=== PATIENT | male | born 1990 | race Caucasian/White ===

== ENCOUNTER 2020-03-09 05:43 | Emergency (ER) | payer MEDICAID ==
[~2020-03-09] VITALS: Ht 170.2 cm; Wt 84.1 kg
[~2020-03-09 05:43] MED LIST: CLIN-5 PO; NO HOME MEDS
[2020-03-09 06:00] VITALS: BP 165/84
[2020-03-09] MEDS ORDERED: ketorolac trometh inj. 60 MG/2 ML VIAL IM ONE (06:35)
== END 2020-03-09 07:58 | disposition home or self-care (01) ==
LOC: ER 05:44
DX: M54.5 Low back pain (principal); F12.90 Cannabis use, unspecified, uncomplicated; Z72.89 Other problems related to lifestyle; W18.39XA Other fall on same level, initial encounter; Y93.89 Activity, other specified; Y92.89 Other specified places as the place of occurrence of the external cause; Y99.8 Other external cause status
CPT/HCPCS: 72170; 96372; 99284; J1885

== ENCOUNTER 2020-04-11 00:27 | Emergency (ER) | payer MEDICAID ==
[~2020-04-11] VITALS: Ht 167.6 cm; Wt 88.6 kg
[~2020-04-11 00:27] MED LIST changes: -CLIN-5 PO
[2020-04-11] MEDS ORDERED: LIDOcaine 1% W/epiNEPHrine 1:100,000 20ml vial SQ ONE (00:40)
[2020-04-11] MEDS ORDERED: TETanus/Pertussis (Acell)/Diphther VAC/PF (Tdap-Adult) 0.5ml syringe IMVAC ONE (00:40)
[2020-04-11] MEDS ORDERED: diphenhydrAMINE 50 mg/ml inj IM ONE (00:50)
[2020-04-11] MEDS: haloperidol lactate 5mg/ml inj IM ONE ×2 (00:55→00:58)
[2020-04-11] MEDS ORDERED: diphenhydrAMINE 50 mg/ml inj ONE (01:02)
--- NOTE | 2020-04-11 01:04 | NUR ---
Pt. given benadryl IM per order for restlessness/anxiety.
--- NOTE | 2020-04-11 01:37 | NUR ---
MD at bedside performing lac repair to affected sites. Pt. tolerating procedure well.
[2020-04-11 01:59] VITALS: BP 143/91
== END 2020-04-11 02:01 ==
LOC: ER 00:27
DX: S01.112A Laceration without foreign body of left eyelid and periocular area, initial encounter (principal); S01.511A Laceration without foreign body of lip, initial encounter; S80.212A Abrasion, left knee, initial encounter; S80.211A Abrasion, right knee, initial encounter; F12.90 Cannabis use, unspecified, uncomplicated; X58.XXXA Exposure to other specified factors, initial encounter; Y93.89 Activity, other specified; Y92.89 Other specified places as the place of occurrence of the external cause; Y99.8 Other external cause status
CPT/HCPCS: 12011; 90471; 90715; 96372; 99284; J1200; J1630

== ENCOUNTER 2020-09-28 14:54 | Emergency (ER) | payer MEDICAID ==
[~2020-09-28] VITALS: Ht 175.3 cm; Wt 95.0 kg
[2020-09-28 15:11] VITALS: BP 117/59
--- NOTE | 2020-09-28 15:23 | NUR ---
Pt. seen, evaluated, and discharged by provider prior to RN intervention.
== END 2020-09-28 15:25 | disposition home or self-care (01) ==
LOC: ER 14:54
DX: R56.9 Unspecified convulsions (principal); F12.10 Cannabis abuse, uncomplicated; R25.1 Tremor, unspecified; R51.9 Headache, unspecified; R42 Dizziness and giddiness; Z00.01 Encounter for general adult medical examination with abnormal findings
CPT/HCPCS: 99281

== ENCOUNTER 2022-04-26 09:13 | Emergency (ER) | payer MEDICAID ==
[2022-04-26 09:16] VITALS: BP 157/96
== END 2022-04-26 09:46 | disposition home or self-care (01) ==
LOC: ER 09:13
DX: Z02.89 Encounter for other administrative examinations (principal); F12.90 Cannabis use, unspecified, uncomplicated; F41.9 Anxiety disorder, unspecified; Z72.89 Other problems related to lifestyle
CPT/HCPCS: 99281

== ENCOUNTER 2022-04-28 09:59 | Emergency (ER) | payer MEDICAID ==
[~2022-04-28] VITALS: Ht 167.6 cm; Wt 101.2 kg
[2022-04-28 10:13] VITALS: BP 135/85
[2022-04-28] MEDS ORDERED: NALT50TA PO (11:25)
== END 2022-04-28 11:33 | disposition home or self-care (01) ==
LOC: ER 09:59
DX: F10.20 Alcohol dependence, uncomplicated (principal); F12.90 Cannabis use, unspecified, uncomplicated; Z79.899 Other long term (current) drug therapy; Y90.9 Presence of alcohol in blood, level not specified
CPT/HCPCS: 99283

== ENCOUNTER 2022-07-30 16:21 | Emergency (ER) | payer MEDICAID ==
[~2022-07-30] VITALS: Ht 172.7 cm; Wt 100.0 kg
[~2022-07-30 16:21] MED LIST changes: +NALT50TA PO
[2022-07-30 16:25] VITALS: BP 174/92
== END 2022-07-30 17:20 | disposition home or self-care (01) ==
LOC: ER 16:22
DX: F10.129 Alcohol abuse with intoxication, unspecified (principal); R11.2 Nausea with vomiting, unspecified; F17.200 Nicotine dependence, unspecified, uncomplicated; F12.10 Cannabis abuse, uncomplicated; Z79.899 Other long term (current) drug therapy; Y90.9 Presence of alcohol in blood, level not specified
CPT/HCPCS: 99281

== ENCOUNTER 2022-11-14 22:39 | Emergency (ER) | payer MEDICAID ==
[~2022-11-14] VITALS: Ht 167.6 cm; Wt 100.0 kg
[2022-11-14 22:46] VITALS: BP 152/107
[2022-11-14] MEDS ORDERED: AMOX-115 PO (23:57)
== END 2022-11-15 00:07 | disposition home or self-care (01) ==
LOC: ER 22:41
DX: S00.511A Abrasion of lip, initial encounter (principal); F12.10 Cannabis abuse, uncomplicated; F10.129 Alcohol abuse with intoxication, unspecified; Y90.9 Presence of alcohol in blood, level not specified; Y04.0XXA Assault by unarmed brawl or fight, initial encounter; Y93.89 Activity, other specified; Y92.89 Other specified places as the place of occurrence of the external cause; Y99.8 Other external cause status
CPT/HCPCS: 70450; 70486; 72125; 99284

== ENCOUNTER 2023-09-25 19:58 | Emergency (ER) | payer MEDICAID | END 2023-09-25 23:20 | disposition left against medical advice (07) | LOC: ER 19:58 | DX: S61.219A Laceration without foreign body of unspecified finger without damage to nail, initial encounter (principal); Z53.21 Procedure and treatment not carried out due to patient leaving prior to being seen by health care provider; X58.XXXA Exposure to other specified factors, initial encounter; Y93.89 Activity, other specified; Y92.89 Other specified places as the place of occurrence of the external cause; Y99.8 Other external cause status ==

== ENCOUNTER 2023-09-25 23:17 | Emergency (ER) | payer MEDICAID ==
[~2023-09-25] VITALS: Ht 165.1 cm; Wt 97.7 kg
[2023-09-26] MEDS ORDERED: ondansetron 4mg rapidly disintigrating tab PO ONE (00:35)
[2023-09-26 01:20] LABS: BASOPHILS # (AUTO) 0.1 X10'3 (0-0.2); BASOPHILS % (AUTO) 1.5 % (0-1); EOSINOPHILS % (AUTO) 0.3 % (0-6); HEMATOCRIT 41.4 % (42.0-52.0); HEMOGLOBIN 14.4 g/dl (14.0-17.9); LYMPHOCYTES # (AUTO) 2.5 X10'3 (1.1-4.8); LYMPHOCYTES % (AUTO) 35.4 % (21-51); MEAN CORPUSCULAR HEMOGLOBIN 32.3 PG (27.0-31.0); MEAN CORPUSCULAR HGB CONC 34.8 g/dL (33.0-36.5); MEAN PLATELET VOLUME 7.8 FL (7.4-10.4); MONOCYTES # (AUTO) 0.8 X10'3 (0-0.9); MONOCYTES % (AUTO) 10.8 % (2-12); NEUTROPHILS # (AUTO) 3.7 X10'3 (1.8-7.7); PLATELET COUNT 286 X10'3 (140-440); RED BLOOD COUNT 4.46 X10'6 (4.70-6.10); RED CELL DISTRIBUTION WIDTH 14.6 % (11.5-14.5); WHITE BLOOD COUNT 7.1 X10'3 (4.5-11.0)
[2023-09-26 01:35] LABS: ALANINE AMINOTRANSFERASE 24 U/L (12-78); ALBUMIN 3.8 G/DL (3.4-5.0); ALBUMIN/GLOBULIN RATIO 0.9 (1.1-1.5); ALKALINE PHOSPHATASE 87 IU/L (46-116); ANION GAP 10 (8-16); ASPARTATE AMINO TRANSFERASE 24 U/L (10-37); BILIRUBIN,TOTAL 0.5 MG/DL (0.1-1.0); BLOOD UREA NITROGEN 10 MG/DL (7-18); BUN/CREATININE RATIO 11.9 (10.0-20.0); CALCIUM 8.5 MG/DL (8.5-10.1); CHLORIDE 105 MMOL/L (99-107); CREATININE 0.84 MG/DL (0.60-1.10); GLUCOSE 105 MG/DL (70-104); POTASSIUM 3.6 MMOL/L (3.5-5.1); SODIUM 142 MMOL/L (135-145); TOTAL CARBON DIOXIDE 27.3 MMOL/L (24-32); eCRCL 108 ML/MIN; eGFR > 90 ML/MIN
[2023-09-26 01:39] LABS: ETHANOL 315 MG/DL (<10)
[2023-09-26 01:56] LABS: BILIRUBIN,URINE NEGATIVE (Neg); CLARITY,URINE CLEAR (Clear); COLOR,URINE YELLOW (Yellow); GLUCOSE, URINE NEGATIVE (Neg); KETONES,URINE NEGATIVE (Neg); LEUKOCYTE ESTERASE ,URINE NEGATIVE (Neg); NITRITES, URINE NEGATIVE (Neg); OCCULT BLOOD,URINE TRACE-INTACT (Neg); PH,URINE 7.5 (4.8-8.0); PROTEIN,URINE NEGATIVE (Neg)
[2023-09-26 02:14] LABS: UA COLLECTION TYPE VOIDED
[2023-09-26 02:15] LABS: BACTERIA,URINE FEW /HPF (Neg); RBC,URINE 0-2 /HPF (0-2); SQUAMOUS EPITHELIAL CELL,UR FEW /LPF (FEW); WBC,URINE 0-4 /HPF (0-4)
[2023-09-26] MEDS ORDERED: bacitracin 15gm ointment TP ONE (02:25)
[2023-09-26 03:02] VITALS: BP 113/81; PULSE 82; RESP 16; TEMP 98.8; O2SAT 98
== END 2023-09-26 03:06 | disposition home or self-care (01) ==
LOC: ER 23:18
DX: S61.212A Laceration without foreign body of right middle finger without damage to nail, initial encounter (principal); G40.909 Epilepsy, unspecified, not intractable, without status epilepticus; F10.129 Alcohol abuse with intoxication, unspecified; F12.90 Cannabis use, unspecified, uncomplicated; Z79.899 Other long term (current) drug therapy; X58.XXXA Exposure to other specified factors, initial encounter; Y93.89 Activity, other specified; Y92.89 Other specified places as the place of occurrence of the external cause; Y99.8 Other external cause status; Y90.9 Presence of alcohol in blood, level not specified
CPT/HCPCS: 12001; 36415; 70450; 72125; 80053; 80320; 81001; 85025; 99285

== ENCOUNTER 2024-06-20 01:58 | Emergency (ER) | payer MEDICAID ==
[~2024-06-20] VITALS: Ht 167.6 cm; Wt 103.7 kg
[~2024-06-20 01:58] MED LIST changes: -NALT50TA PO; +NALT50TA5 PO
[2024-06-20 02:09] VITALS: TEMP 98.2
[2024-06-20] MEDS: acetaminophen 325mg tablet PO ONE (04:39)
[2024-06-20 05:57] LABS: ALANINE AMINOTRANSFERASE 58 U/L (12-78); ALBUMIN 3.5 G/DL (3.4-5.0); ALBUMIN/GLOBULIN RATIO 0.7 (1.1-1.5); ALKALINE PHOSPHATASE 106 IU/L (46-116); ANION GAP 8 (8-16); ASPARTATE AMINO TRANSFERASE 64 U/L (10-37); BILIRUBIN,TOTAL 0.7 MG/DL (0.1-1.0); BLOOD UREA NITROGEN 7 MG/DL (7-18); BUN/CREATININE RATIO 8.4 (10.0-20.0); CALCIUM 8.6 MG/DL (8.5-10.1); CHLORIDE 105 MMOL/L (99-107); CREATININE 0.83 MG/DL (0.60-1.10); ETHANOL 238 MG/DL (<10); GLUCOSE 87 MG/DL (70-104); POTASSIUM 3.3 MMOL/L (3.5-5.1); SODIUM 141 MMOL/L (135-145); TOTAL CARBON DIOXIDE 27.8 MMOL/L (24-32); TOTAL PROTEIN 8.3 G/DL (6.4-8.2); eCRCL 112 ML/MIN; eGFR > 90 ML/MIN
[2024-06-20 06:00] LABS: BASOPHILS # (AUTO) 0.1 X10'3 (0-0.2); EOSINOPHILS # (AUTO) 0.1 X10'3 (0-0.9); EOSINOPHILS % (AUTO) 1.7 % (0-6); HEMATOCRIT 47.8 % (42.0-52.0); HEMOGLOBIN 15.9 g/dl (14.0-17.9); LYMPHOCYTES # (AUTO) 1.7 X10'3 (1.1-4.8); LYMPHOCYTES % (AUTO) 31.5 % (21-51); MEAN CORPUSCULAR HEMOGLOBIN 32.6 PG (27.0-31.0); MEAN CORPUSCULAR HGB CONC 33.3 g/dL (33.0-36.5); MEAN CORPUSCULAR VOLUME 97.9 FL (78-98); MEAN PLATELET VOLUME 8.4 FL (7.4-10.4); MONOCYTES # (AUTO) 0.8 X10'3 (0-0.9); MONOCYTES % (AUTO) 14.4 % (2-12); NEUTROPHILS # (AUTO) 2.7 X10'3 (1.8-7.7); NEUTROPHILS % (AUTO) 51.4 % (42-75); PLATELET COUNT 240 X10'3 (140-440); RED BLOOD COUNT 4.88 X10'6 (4.70-6.10); RED CELL DISTRIBUTION WIDTH 15.1 % (11.5-14.5); WHITE BLOOD COUNT 5.3 X10'3 (4.5-11.0)
[2024-06-20 06:02] VITALS: BP 146/100; PULSE 89; RESP 16; O2SAT 98
== END 2024-06-20 06:04 | disposition home or self-care (01) ==
LOC: ER 01:58
DX: F10.129 Alcohol abuse with intoxication, unspecified (principal); R47.81 Slurred speech; F12.90 Cannabis use, unspecified, uncomplicated; Z79.899 Other long term (current) drug therapy; Z59.00 Homelessness unspecified; Z56.0 Unemployment, unspecified
CPT/HCPCS: 36415; 70450; 80053; 80320; 82140; 85025; 99284

== ENCOUNTER 2024-06-25 12:46 | Emergency (ER) | payer MEDICAID ==
[~2024-06-25] VITALS: Ht 167.6 cm; Wt 97.7 kg
[2024-06-25 15:01] VITALS: BP 142/91; PULSE 89; RESP 19; TEMP 96.4; O2SAT 99
== END 2024-06-25 15:05 | disposition home or self-care (01) ==
LOC: ER 12:47
DX: F10.129 Alcohol abuse with intoxication, unspecified (principal); F17.200 Nicotine dependence, unspecified, uncomplicated; F12.90 Cannabis use, unspecified, uncomplicated; Z88.6 Allergy status to analgesic agent; Z79.899 Other long term (current) drug therapy; Y90.9 Presence of alcohol in blood, level not specified
CPT/HCPCS: 99281

== ENCOUNTER 2024-07-10 16:15 | Emergency (ER) | payer MEDICAID ==
[~2024-07-10] VITALS: Ht 172.7 cm; Wt 98.2 kg
[2024-07-10 16:29] VITALS: BP 127/90; PULSE 104; RESP 18; TEMP 97.8; O2SAT 94
[2024-07-10] MEDS ORDERED: LEVE500T99 PO (16:43)
== END 2024-07-10 18:03 | disposition home or self-care (01) ==
LOC: ER 16:15
DX: G40.909 Epilepsy, unspecified, not intractable, without status epilepticus (principal); F12.90 Cannabis use, unspecified, uncomplicated; Z88.6 Allergy status to analgesic agent; Z79.899 Other long term (current) drug therapy
CPT/HCPCS: 99281

== ENCOUNTER 2024-07-20 00:16 | Emergency (ER) | payer MEDICAID ==
[~2024-07-20] VITALS: Ht 170.2 cm; Wt 97.5 kg
[~2024-07-20 00:16] MED LIST changes: +LEVE500T99 PO
[2024-07-20] MEDS ORDERED: bacitracin 15gm ointment TP ONE (02:55)
[2024-07-20 03:34] VITALS: BP 162/88; PULSE 97; RESP 20; TEMP 98.3; O2SAT 96
== END 2024-07-20 03:38 | disposition home or self-care (01) ==
LOC: ER 00:17
DX: S61.214A Laceration without foreign body of right ring finger without damage to nail, initial encounter (principal); F10.90 Alcohol use, unspecified, uncomplicated; Z88.8 Allergy status to other drugs, medicaments and biological substances; Z79.899 Other long term (current) drug therapy; Z56.0 Unemployment, unspecified; Z59.00 Homelessness unspecified; W25.XXXA Contact with sharp glass, initial encounter; Y93.89 Activity, other specified; Y92.89 Other specified places as the place of occurrence of the external cause; Y99.8 Other external cause status
CPT/HCPCS: 12001; 99282; J7030; A6449

== ENCOUNTER 2024-07-27 09:47 | Emergency (ER) | payer MEDICAID ==
[~2024-07-27] VITALS: Ht 170.2 cm; Wt 99.3 kg
[2024-07-27 10:55] LABS: BASOPHILS % (AUTO) 0.5 % (0-1); EOSINOPHILS # (AUTO) 0.1 X10'3 (0-0.9); EOSINOPHILS % (AUTO) 1.1 % (0-6); HEMATOCRIT 45.7 % (42.0-52.0); HEMOGLOBIN 15.1 g/dl (14.0-17.9); LYMPHOCYTES # (AUTO) 0.8 X10'3 (1.1-4.8); LYMPHOCYTES % (AUTO) 11.4 % (21-51); MEAN CORPUSCULAR HEMOGLOBIN 32.3 PG (27.0-31.0); MEAN CORPUSCULAR HGB CONC 33.1 g/dL (33.0-36.5); MEAN CORPUSCULAR VOLUME 97.5 FL (78-98); MEAN PLATELET VOLUME 8.4 FL (7.4-10.4); MONOCYTES # (AUTO) 1.2 X10'3 (0-0.9); MONOCYTES % (AUTO) 15.8 % (2-12); NEUTROPHILS # (AUTO) 5.3 X10'3 (1.8-7.7); NEUTROPHILS % (AUTO) 71.2 % (42-75); PLATELET COUNT 198 X10'3 (140-440); RED BLOOD COUNT 4.68 X10'6 (4.70-6.10); RED CELL DISTRIBUTION WIDTH 15.4 % (11.5-14.5); WHITE BLOOD COUNT 7.4 X10'3 (4.5-11.0)
[2024-07-27 10:57] LABS: BILIRUBIN,URINE NEGATIVE (Neg); CLARITY,URINE CLEAR (Clear); COLOR,URINE YELLOW (Yellow); GLUCOSE, URINE NEGATIVE (Neg); KETONES,URINE 15 mg/dl (Neg); LEUKOCYTE ESTERASE ,URINE NEGATIVE (Neg); NITRITES, URINE NEGATIVE (Neg); OCCULT BLOOD,URINE NEGATIVE (Neg); PROTEIN,URINE NEGATIVE (Neg); UROBILINOGEN,URINE 0.2 E.U/dL (0.2-1.0)
[2024-07-27 11:12] LABS: ALANINE AMINOTRANSFERASE 48 U/L (12-78); ALBUMIN 3.1 G/DL (3.4-5.0); ALBUMIN/GLOBULIN RATIO 0.6 (1.1-1.5); ALKALINE PHOSPHATASE 78 IU/L (46-116); ANION GAP 9 (8-16); ASPARTATE AMINO TRANSFERASE 50 U/L (10-37); BILIRUBIN,TOTAL 0.8 MG/DL (0.1-1.0); BLOOD UREA NITROGEN 7 MG/DL (7-18); BUN/CREATININE RATIO 9.2 (10.0-20.0); CALCIUM 9.2 MG/DL (8.5-10.1); CHLORIDE 105 MMOL/L (99-107); CREATININE 0.76 MG/DL (0.60-1.10); GLUCOSE 90 MG/DL (70-104); LIPASE 45 U/L (16-77); POTASSIUM 3.8 MMOL/L (3.5-5.1); SODIUM 141 MMOL/L (135-145); TOTAL CARBON DIOXIDE 26.9 MMOL/L (24-32); TOTAL PROTEIN 7.9 G/DL (6.4-8.2); eCRCL 127 ML/MIN; eGFR > 90 ML/MIN
[2024-07-27 11:43] LABS: UA COLLECTION TYPE CLN CATCH MIDSTREAM
[2024-07-27 11:45] VITALS: BP 154/99; PULSE 64; RESP 16; TEMP 98; O2SAT 99
[2024-07-28] MEDS ORDERED: CHLO25CA10 PO (09:48)
[2024-07-28] MEDS ORDERED: THIA50TA10 PO (10:22)
[2024-07-28] MEDS ORDERED: FOLI0.4T6 PO (10:22)
[2024-07-28] MEDS ORDERED: MECO10005 PO (10:22)
== END 2024-07-27 11:54 | disposition home or self-care (01) ==
LOC: ER 09:47
DX: F10.99 Alcohol use, unspecified with unspecified alcohol-induced disorder (principal); F12.90 Cannabis use, unspecified, uncomplicated; Z88.6 Allergy status to analgesic agent; Z79.899 Other long term (current) drug therapy; Y90.9 Presence of alcohol in blood, level not specified
CPT/HCPCS: 80053; 81003; 82140; 83690; 85025; 99283

== ENCOUNTER 2024-07-28 09:39 | Emergency (ER) | payer MEDICAID ==
[~2024-07-28] VITALS: Ht 170.2 cm; Wt 93.2 kg
[2024-07-28] MEDS ORDERED: CHLO25CA10 PO (09:48)
[2024-07-28] MEDS ORDERED: FOLI0.4T6 PO (10:22)
[2024-07-28] MEDS ORDERED: THIA50TA10 PO (10:22)
[2024-07-28] MEDS ORDERED: MECO10005 PO (10:22)
[2024-07-28] MEDS: chlordiazePOXIDE 25mg capsule PO ONE (10:44)
[2024-07-28 10:47] VITALS: BP 155/84; PULSE 90; RESP 18; TEMP 98.7; O2SAT 98
== END 2024-07-28 10:49 | disposition home or self-care (01) ==
LOC: ER 09:39
DX: F10.10 Alcohol abuse, uncomplicated (principal); F12.90 Cannabis use, unspecified, uncomplicated; Z88.6 Allergy status to analgesic agent; Z79.899 Other long term (current) drug therapy
CPT/HCPCS: 99283

== ENCOUNTER 2024-08-15 11:54 | Emergency (ER) | payer MEDICAID ==
[~2024-08-15] VITALS: Ht 167.6 cm; Wt 86.0 kg
[~2024-08-15 11:54] MED LIST changes: +CHLO25CA10 PO; +FOLI0.4T6 PO; +MECO10005 PO; +THIA50TA10 PO
[2024-08-15] MEDS ORDERED: LEVE500T99 PO (14:16)
[2024-08-15] MEDS ORDERED: CHLO25CA10 PO (14:16)
[2024-08-15 14:21] VITALS: BP 126/78; PULSE 90; RESP 18; TEMP 97.9; O2SAT 99
== END 2024-08-15 14:22 | disposition home or self-care (01) ==
LOC: ER 11:54
DX: F10.10 Alcohol abuse, uncomplicated (principal); Z76.0 Encounter for issue of repeat prescription; F12.90 Cannabis use, unspecified, uncomplicated; Z88.6 Allergy status to analgesic agent; Y90.6 Blood alcohol level of 120-199 mg/100 ml
CPT/HCPCS: 99281

== ENCOUNTER 2025-09-01 23:32 | Emergency (ER) | payer MEDICAID ==
[~2025-09-01] VITALS: Ht 167.6 cm; Wt 146.0 kg
[~2025-09-01 23:32] MED LIST changes: -FOLI0.4T6 PO; +LEVE-21 PO; -LEVE500T99 PO
[2025-09-01 23:48] VITALS: BP 154/108; PULSE 113; RESP 22; TEMP 98.4; O2SAT 98
--- NOTE | 2025-09-02 00:28 | Physician Documentation ---
History of Present Illness ~ Chief Complaint: See Chief Complaint Stated Complaint: SEE CHIEF COMPLAINT A BLS Time Seen by MD: 23:37 Primary Medical Doctor: NONE HPI 35 year old male felt some numbness in his fingers and on his face and became concerned that he was going to experience a seizure. He has a history of seizures and takes antiseizure medication. Denies fevers, cough, N/V/D, sob, chest pain. Medication Reconciliation Allergies: Coded Allergies: ibuprofen (Verified Allergy, Unknown, 09/01/25) Scheduled Levetiracetam (Levetiracetam), 1 TAB PO Q12H Mecobalamin (B12 Active), 1 TAB PO DAILY Naltrexone Hcl (Naltrexone Hcl), 1 TAB PO DAILY Thiamine HCl (Vitamin B-1), 2 TAB PO DAILY Scheduled PRN Chlordiazepoxide Hcl (Librium), 2 CAP PO BID PRN for alcohol withdrawal Miscellaneous Medications Home Med List (No Home Medications), (Reported) Past Medical History Past Medical History: *[employer]*, Seizures, *GI/HEPATOBILIARY* Past Surgical History: no surgical history Alcohol Use: Alcoholic Drug Use: marijuana Lives In: Homeless Occupation: unemployed Review of Systems All Other Systems at this time: Reviewed and Negative Physical Exam Vital Signs: RN Vital Signs have been reviewed: Yes, Temperature: 98.4, Source: Oral, Heart Rate: 113, Respiratory Rate: 22, BP: 154/108, Pulse Oximetry: 98, Weight: 146.000 Physical Exam HEENT: PERRL, moist oral mucosa, EOMI Pulmonary: No respiratory distress MSK: no deformity Skin: w/d/i, no rash Neuro: alert, nonfocal Psych: normal affect Progress Results/Orders Reviewed/noted all lab results: Yes Results/Orders Orders - GILBERT HENDRICKSON MD Cbc/Diff (09/01/25 23:38) CMP (09/01/25 23:38) Ethanol (09/01/25 23:38) Vital Signs 09/01/25 09/01/25 23:41 23:48 Temp 98.4 98.4 Pulse 113 113 Resp 18 22 B/P (MAP) 154/108 154/108 (123) Pulse Ox 95 98 Laboratory Tests Test 09/01/25 00:02 CBC Comment Chemistry Comments Medical Decision Making Additional information obtaine: N/A Findings 35 year old male with history of seizure disorder. Before workup could be completed he wished to leave AMA after thorough discussion of risks of doing so. Differential Dx:Considerations: Include: Other Additional Comment Ddx = seizure, pseudoseizure, medication noncompliance, alcohol withdrawal seizure Departure Disposition: 01 HOME / SELF CARE / HOMELESS Impression: Primary Impression: History of seizure Condition: Stable Discharge Instructions: Seizure, Adult Referrals: NO PRIMARY CARE PROVIDER (PCP) Education Educated: Patient Educated regarding: diagnosis, treatment, prognosis, need for follow up Signature Scribe Signature: . Attestation: . GILBERT HENDRICKSON MD Sep 02, 2025 00:28
[2025-09-02 00:39] LABS: CREATININE 0.99 MG/DL (0.60-1.10); ETHANOL 275 MG/DL (<10); TOTAL CARBON DIOXIDE 24.4 MMOL/L (24-32); eCRCL 93 ML/MIN; eGFR 86 ML/MIN
[2025-09-02 01:24] LABS: MEAN PLATELET VOLUME 8.2 FL (7.4-10.4); RED CELL DISTRIBUTION WIDTH 14.6 % (11.5-14.5)
== END 2025-09-02 00:33 | disposition left against medical advice (07) ==
LOC: ER 23:33
DX: R56.9 Unspecified convulsions (principal); F12.90 Cannabis use, unspecified, uncomplicated; F10.90 Alcohol use, unspecified, uncomplicated; Z88.6 Allergy status to analgesic agent; Z79.899 Other long term (current) drug therapy; Z56.0 Unemployment, unspecified; Z59.00 Homelessness unspecified; Y90.9 Presence of alcohol in blood, level not specified
CPT/HCPCS: 36415; 80053; 80320; 85025; 99284